=== PATIENT | female | born 1975 ===

== ENCOUNTER 2017-10-29 02:22 | Observation (INO) | payer MEDICAID, OTHER ==
--- NOTE | 2017-10-28 22:05 | HISTORY AND PHYSICAL ---
DATE OF ADMISSION: October 29, 2017 CHIEF COMPLAINT Abnormal Pap. HISTORY OF PRESENT ILLNESS Patient is a 42-year-old 3, para 2 with a history of SHARON 3 on Pap. Recently had returned with LGSIL. She is no longer desiring fertility and is concerned about developing a cervical cancer and she has a history of HPV as well as smoking and has had multiple abnormal Pap smears since 2014. After discussion of risks and alternatives, patient desires to proceed with robotic- assisted hysterectomy, bilateral salpingectomy, diagnostic cystoscopy and possible modified Brasher culdoplasty. PAST MEDICAL HISTORY * Carcinoma in situ of the cervix. * Left bundle branch block. * Anxiety. * OCD. * Hypothyroidism. PAST SURGICAL HISTORY * Two vaginal deliveries. * LEEP of the cervix in 2014. * Gallbladder removal in 2014. ALLERGIES No known drug allergies. CURRENT MEDICATIONS * [place] Thyroid 90 mcg one p.o. q.day. * Lexapro 20 mg. * Mirena. SOCIAL HISTORY She does not drink alcohol. She is an every day smoker. No illicit drug use. 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 FAMILY HISTORY Father with hypertension and throat cancer. Mother with hypertension. REVIEW OF SYSTEMS GENITOURINARY: As per HPI. GENERAL, SKIN, EYES, EARS, NOSE, MOUTH, NECK, RESPIRATORY, CARDIOVASCULAR, GASTROINTESTINAL, MUSCULOSKELETAL, PSYCHIATRIC: All reviewed and noncontributory. PHYSICAL EXAMINATION VITAL SIGNS: BP 118/64, temp 98.8, weight 215, height 69.75 inches with BMI of 39.6. CONSTITUTIONAL: A well-nourished, well-developed female in no distress. SKIN: Without rash or lesions. NECK: Supple without masses. HEART: Regular rate and rhythm. LUNGS: Clear to auscultation bilaterally. ABDOMEN: Soft, nontender, nondistended. Bowel sounds positive. EXTREMITIES: Nontender, no edema. PSYCHIATRIC: Alert and oriented times three. Normal mood and affect. PELVIC: Normal external female genitalia. Well estrogenized vaginal lining. Uterus 6 x 5 cm. No adnexal masses or tenderness. ASSESSMENT Persistently abnormal Pap smears with history of carcinoma in situ. PLAN Plan to perform robotic-assisted hysterectomy with bilateral salpingectomy, diagnostic cystoscopy with possible modified Brasher culdoplasty. [facility], [place]
[~2017-10-29] VITALS: Ht 157.5 cm; Wt 97.5 kg
[2017-10-29] VITALS (8 sets, daily range): BP systolic 123–154; BP diastolic 72–85
[~2017-10-29 02:22] MED LIST: AMOX-559 PO; AZEL205.2 NS; CHOL100059 PO; DOCU100C49 PO; ESCI20TA38 PO; FEXO180T87 PO; FLUT16SP19 NS; L.AC1CAP6 PO; LEVO75TA73 PO; LOR5/325 PO; ONDA4TAB PO; RANI-366 PO
[2017-10-29] MEDS ORDERED: CELECOXIB 200 MG CAP PO ONE (06:30)
[2017-10-29] MEDS ORDERED: PHENAZOPYRIDINE 200 MG TAB PO ONE (06:30)
[2017-10-29] MEDS ORDERED: HYDROmorphone HCL 2 MG TAB PO ONE (06:30)
[2017-10-29] MEDS ORDERED: cefOXitin/DEX(*) 2GM/50ML PREM 50 ML IVPB ONE (06:30)
[2017-10-29 06:36] LABS: PLATELET COUNT, AUTOMATED 166 K/uL (150-450)
[2017-10-29] MEDS ORDERED: ROPIVACAINE 0.2% 20 ML VIAL ONE (07:00)
[2017-10-29] MEDS ORDERED: LIDOCAINE MPF 1% 5 ML VIAL ONE (07:42)
[2017-10-29] MEDS ORDERED: PROPOFOL EMUL(*) 10MG/ML 20 ML 20 ML ONE (07:42)
[2017-10-29] MEDS ORDERED: ONDANSETRON 4 MG/2 ML VIAL ONE (07:42)
[2017-10-29] MEDS ORDERED: DEXAMETHASONE SOD PHOS 10MG/ML ONE (07:42)
[2017-10-29] MEDS ORDERED: fentaNYL CITR 100 MCG/2 ML AMP ONE ×2 (07:42→11:47)
[2017-10-29] MEDS ORDERED: MIDAZOLAM 2 MG/2 ML VIAL ONE (07:43)
[2017-10-29] MEDS ORDERED: ARTIFICIAL TEARS OINT 3.5 GM ONE (07:48)
[2017-10-29] MEDS ORDERED: FAMOTIDINE 20 MG TAB PO ONE (07:50)
[2017-10-29] MEDS ORDERED: NORMOSOL R SOLN(*) 1000 ML BAG 1,000 ML IV PRN (07:50)
[2017-10-29] MEDS ORDERED: MIDAZOLAM 2 MG/2 ML VIAL IVP PRN (07:50)
[2017-10-29] MEDS ORDERED: LIDOCAINE/SOD BICARB 8.4% SYR ID ONE (07:50)
[2017-10-29] MEDS ORDERED: METOPROLOL TART 5 MG/5 ML VIAL ONE (07:56)
[2017-10-29] MEDS ORDERED: ROCURONIUM BROM 10 MG/ML 10 ML ONE (08:00)
[2017-10-29] MEDS ORDERED: PHENYLEPHRINE 10 MG/1 ML VIAL ONE (08:01)
[2017-10-29] MEDS ORDERED: SUGAMMADEX SOD 500 MG/5 ML SDV ONE (10:15)
[2017-10-29] MEDS ORDERED: FAMOTIDINE(*) 20MG/50ML PREMIX 50 ML IVPB PRN (10:33)
[2017-10-29] MEDS ORDERED: DLR(*) 1000 ML BAG 1,000 ML IV PRN (10:33)
--- NOTE | 2017-10-29 10:33 | Post Operative Note ---
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 Operative Day Date: Oct 29, 2017 Time: 10:15 Physicians Surgeon: EDSON Copra Sampler: OSVALDO Anesthesia: SHIELDS Diagnosis Pre-Op Diagnosis: HX OF SHARON 3 Post-Op Diagnosis: SAME ADHESIONS Procedure Findings: UTERUS 7X6 ADHESIONS LEFT TUBE AND PELVIC SIDEWALL ABSENT LEFT OVARY, RIGHT OVARY ADHERED TO POSTERIOR UTERUS NORMAL RIGHT TUBE NORMAL BLADDER, BILATERAL URETERAL JETS AT END OF PROCEDURE [id number] Procedure(s): RAH BISALPINGECTOMY ADHESIOLYSIS DX CYSTO Complications: 0 Fluids Fluids: 1900 CC NR IV Estimated Blood Loss: 30 CC Dictated Date OP Note Dictated: Oct 29, 2017 Time OP Note Dictated: 10:40 Copies to: CAROL SANDHU MD, JOHN MD Oct 29, 2017 10:32
[2017-10-29] MEDS ORDERED: ONDANSETRON 4 MG/2 ML VIAL IV PRN (10:35)
[2017-10-29] MEDS ORDERED: HYDROmorphone HCL 2 MG TAB PO PRN (10:35)
[2017-10-29] MEDS ORDERED: INFLUENZA VIRUS VAC 0.5 ML SYR IM ONE (10:35)
[2017-10-29] MEDS ORDERED: METOCLOPRAMIDE 10 MG/2 ML SDV IV PRN (10:35)
[2017-10-29] MEDS ORDERED: PROMETHAZINE 25 MG/ML 1 ML AMP IVP PRN (10:35)
[2017-10-29] MEDS ORDERED: OXYC-373 PO (10:37)
[2017-10-29] MEDS ORDERED: IBUP800T37 PO (10:37)
--- NOTE | 2017-10-29 10:39 | OB/GYN Discharge Summary ---
Discharge Summary Reason for Hosp/Final Diag: (1) S/P robot-assisted surgical procedure Hospital Course & Plan: ROBOT HYST PERFORMED NO COMPLICATIONS, ON DAY 0 PAIN CONTROLLED TOLERATING DIET AND ACTIVITY, VOIDED PASSED FLATUS, STRONGLY DESIRED DISCHARGE Lates Vital Signs Vital Signs Date Time Temp Pulse Resp B/P (MAP) Pulse Ox O2 Delivery O2 Flow Rate FiO2 10/29/17 06:37 97.8 72 16 140/80 (100) 95 Room Air Weight (Pounds): 215 Result Diagram: 10/29/17 0630 Condition: Improved Discharge: Home, Self Retirement Meds Active Scripts Oxycodone Hcl/Acetaminophen (OXYCODONE-ACETAMINOPHEN 5-325) 1 Each Tablet, 1-2 EACH PO Q4H Y for PAIN, #30 TAB 0 Refills TAKE 1-2 TABLET NEEDED FOR PAIN - NO CLOSER THAN EVERY 4 HOURS. Prov:CAROL RAMIREZ MD 10/29/17 Ibuprofen (IBUPROFEN) 800 Mg Tablet, 1 TAB PO Q8H, #30 TAB 0 Refills Take with food every 8 hours. Prov:CAROL RAMIREZ MD 10/29/17 Reported Medications Fexofenadine Hcl (FEXOFENADINE HCL) 180 Mg Tablet, 180 MG PO QDAY 08/24/16 Levothyroxine Sodium (LEVOTHYROXINE SODIUM) 75 Mcg Tablet, 75 MCG PO QDAY, TAB 08/24/16 Escitalopram Oxalate (LEXAPRO) 20 Mg Tablet, 20 MG PO QDAY, TAB 08/24/16 L.acidoph & Paracasei,B.lactis (Probiotic) 1 Each Capsule, 1 CAP PO DAILY 08/24/16 Ranitidine Hcl (ZANTAC) 150 Mg Tablet, 150 MG PO BID Y for HEARTBURN, TAB 08/24/16 Fluticasone Prop 50 Mcg Ns (FLONASE 50 MCG NS) 16 Gm [place].susp, 2 SPRAYS NS BID , BOT 08/24/16 Cholecalciferol (Vitamin D3) (VITAMIN D3) 1,000 Unit Capsule, 1000 UNIT PO DAILY , CAPSULE 08/24/16 Follow up with: Dr. Ramirez [phone] Follow up in: 6 wks PP or PO, 2 wks PO Discharge Diet: As Tolerates Discharge Activity: Pelvic Rest Copies to: CAROL RAMIREZ MD, JOHN MD Oct 29, 2017 10:39
[2017-10-29] MEDS: ACETAMINOPHEN(*)1000 MG/100 ML 100 ML IVPB SCH ×2 (12:13→17:44)
[2017-10-29] MEDS: SIMETHICONE 80 MG CHEW CHEW SCH ×2 (13:00→17:42)
--- NOTE | 2017-10-29 13:24 | OPERATIVE REPORT 1 ---
EVENT DATE: October 29, 2017 SURGEON: Hans Ramirez MD ANESTHESIOLOGIST: Vimal Kaufman MD ANESTHESIA: manufacturing test engineer: Fabrice Villanueva MD PREOPERATIVE DIAGNOSES 1. History of CIN3. 2. Persistent abnormal Paps. POSTOPERATIVE DIAGNOSES 1. History of CIN3. 2. Persistent abnormal Paps. 3. Adhesions. PROCEDURE PERFORMED Robotic-assisted hysterectomy with bilateral salpingectomy, adhesiolysis and diagnostic cystoscopy. COMPLICATIONS None. FLUIDS 1900 mL of Normosol IV. ESTIMATED BLOOD LOSS 30 mL. INDICATIONS The patient is a 29-year-old multiparous female with history of CIN3 status post LEEP. Followup had persistently abnormal Paps. Patient no longer desired fertility, and desired to proceed with hysterectomy. FINDINGS Uterus 7 x 6 cm. She had adhesions to the left tube and pelvic sidewall, absent left ovary. She had multiple cysts of Morgagni on the left and right tube. She had a right ovary adhered to the posterior uterus. She had a normal right tube, normal bladder. Bilateral ureteral jets were seen at end of the procedure. PROCEDURE After informed consent was obtained, the patient was taken to the operating room with the IV running, placed in a supine position, where general anesthesia was obtained without difficulty. She was then placed in [facility], examined under anesthesia with the above findings. She was then prepped and draped in the usual fashion. A Umana catheter was placed. Weighed speculum was placed into the vagina. Cervix was sounded to 9 cm. The V-Care was then advanced into the uterine cavity and sewn to the cervix with #0-Vicryl to secure it. Legs were then lowered. Attention was then turned to the abdomen. 0.2 Naropin was infiltrated into the umbilicus, skin incision made with a scalpel. Veress needle advanced into the umbilicus, and normal CO2 filling pressures were noted. After adequate insufflation, an 8 mm bladeless trocar was then advanced into the abdominal cavity. No injuries were noted at time of entry. The remaining ports were then placed in a horizontal plane with one of two ports placed in the left side of the abdomen, and then the #4 being placed on the right side, and the cyst port in the far right lateral positioning. They were all placed in a similar fashion with 0.2 Naropin, skin incision with a scalpel, and advancing the 8 mm bladeless trocar under direct visualization. Once all the trocars were placed, the robot was then docked. Targeting was successful. The remaining arms were all docked and the instruments advanced into the abdominal cavity under direct visualization. Dr. Ramirez attended the console, and inspection of the left pelvic side wall revealed adhesions of the bowel to the left pelvic sidewall, which is also to the left tube and posterior cul-de-sac. The scissors were used then to transect the adhesions away from the left pelvic sidewall. There was cyst of Morgagni on the patient's left tube. However, after careful inspection, a right ovary could not be visualized , did not pick up man in history where she had surgically removed. The left tube did appear shortened. The only other abnormalities were the cyst of Morgagni on the left tube. Once all the adhesions were removed from the tube and bowel on the pelvic sidewall, and normal anatomy was restored, the Endoshears were used to transect the mesosalpinx towards the cornual region of the uterus. The vessel sealer was then used to coapt and transect the mesosalpinx towards the round ligament. Round ligament was transected with a vessel sealer, and then the remainder of the broad ligament was then transected parallel to the uterus down to the lower uterine segment with a vessel sealer. The bladder flap was then created. The ProGrasp was used to tent the peritoneum above the V-Care cup , and the scissors were used to transect the peritoneum over the V-Care up, create a bladder flap anteriorly. The posterior leaf of the broad ligament was then transected down towards the right uterosacral ligament. The uterine arteries were then identified, and in a perpendicular angle in the lower uterine segment, the vessel sealer was used to coapt the uterine arteries, and then were transected. Then with the assist of the vessel sealer and the scissors, the remaining pedicle was developed by placing the vessel sealer parallel to the cervix and grasping the uterine arteries, coapting, and then using the scissors to transect the uterine arteries. Once the pedicle had been developed, attention was then turned back to the patient's right side. The right ovary adhesion was removed from the posterior wall of the uterus with the Endo Herb, and then the tube was from the right ovary with the vessel sealer down to the cornual region of the uterus. Uterine ovarian ligament was identified on the patient's right and coapted with the vessel sealer, and then transected down towards the round ligament. The round ligament was transected with the vessel sealer, and the broad ligament was serially clamped with the vessel sealer, coapted and transected down to the lower uterine segment. The bladder flap was then completed anteriorly with Endo Herb, transecting the peritoneum anteriorly. The posterior leaf of the broad ligament was then transected down towards the right uterosacral ligament. Uterine arteries were identified, and they purchased in the lower uterine segment at a perpendicular angle with a vessel sealer in two locations and then transected. The vessel sealer and the scissors were then used to develop the pedicle further by grasping the uterine artery pedicle parallel to the cervix, and then transecting the pedicle with the scissors. Once the pedicle had been developed, the colpotomy was performed over the V cup, and at the 12 o'clock position, transecting down towards the three o'clock down to the six o'clock. Attention was then turned to the patient's left, where in a counterclockwise manner, the completion of the colpotomy was performed from the 12 to nine and six o'clock position. Once this was fully transected, the uterus was removed from the vagina. Inspection of the vaginal cuff revealed minor oozing on the patient's right, which was made hemostatic with the bipolar fenestrated grasper. The needle bulk delivery driver was then advanced with a long forceps and #0-Vicryl was advanced into the abdomen, and the apices on the right then the left were secured with a [id number] suture, plicating the uterosacral ligament to the vaginal cuff on the right then the left. Then, the needle was then removed , and the V-Loc was advanced into the abdomen, and then the V-Loc was then used to close the vaginal cuff in a running fashion. Irrigation was performed. No bleeding was noted from the cuff or any of the pedicles. The instruments were removed from the abdomen. The robot was undocked. The NathanTexxiBecca was used to close the 10-11 port on the patient's right side with #0-Vicryl, and the skin closed with preet. The gas was allowed to escape prior to removal of all the trocars. Cystoscopy was performed, and bilateral ureteral jets could be visualized, the right and the left ureteric orifices. No injuries were noted within the bladder. Umana catheter was then replaced. Vagina was inspected, noted to be hemostatic and good vaginal closure. Patient was taken out of the [facility], awakened from anesthesia and taken to the recovery room in stable condition. DUTCH
--- NOTE | 2017-10-29 15:43 | OB/GYN Progress Note ---
OB Subjective Progress Notes Subjective ambulating, tolerating pain, no nausea or vomiting GI: NEG Nausea, NEG Vomiting, NEG Flatus : Voiding Well Pain: Mild OB Objective Physical Exam Vital Signs Date Time Temp Pulse Resp B/P (MAP) Pulse Ox O2 Delivery O2 Flow Rate FiO2 10/29/17 12:35 63 12 96 10/29/17 06:37 97.8 140/80 (100) Room Air Intake and Output 10/30/17 06:59 Intake Total 2500 ml Output Total 350 ml Balance 2150 ml Intake Oral 100 ml IV Total 2400 ml Output Urine Total 350 ml Cardiovascular: Regular Rate and Rhythm Respiratory: Clear to Auscultation Abdomen: Soft, Non-Tender, Non-Distended, Bowel Sounds Present Extremities: No Edema Result Diagram: 10/29/17 0630 Assessment and Plan Problems: (1) S/P robot-assisted surgical procedure Assessment & Plan: pain controlled, tolerating diet and exercise, strongly desires to go home, will encourage to continue observation CAROL SANDHU MD Oct 29, 2017 15:43
[2017-10-29] MEDS: METOCLOPRAMIDE 10 MG/2 ML SDV IVP SCH ×2 (15:57→17:00)
[2017-10-29] MEDS ORDERED: CELECOXIB 200 MG CAP PO SCH (20:00)
[2017-10-29] MEDS ORDERED: FAMOTIDINE 20 MG TAB PO SCH (21:00)
[2017-10-29] MEDS ORDERED: DOCUSATE CALCIUM 240 MG CAP PO SCH (21:00)
== END 2017-10-29 19:26 | disposition home or self-care (01) ==
LOC: OR 02:22 → INTOOBSV 12:35 → PED 12:35 → UNDOADMIN 13:13 → PED 13:13
PROVIDERS: ADMIT Obstetrics & Gynecology; ATTEND Obstetrics & Gynecology
DX: N73.6 Female pelvic peritoneal adhesions (postinfective) (principal)
CPT/HCPCS: 36415; 58571; 84703; 85025; 88307; G0378; J0131; J0694; J1100; J2001; J2250; J2370; J2405; J2704; J2765; J2795; J3010; J3490; S2900

== ENCOUNTER → 2018-02-25 | Outpatient (CLI) | payer MEDICAID ==
[~2018-02-25] MED LIST changes: +AZEL137S NS; +IBUP800T37 PO; +OXYC-373 PO
== END ==
LOC: LAB 14:59
PROVIDERS: ATTEND Otolaryngology
DX: J30.9 Allergic rhinitis, unspecified (principal)
CPT/HCPCS: 36415; 86003

== ENCOUNTER 2018-03-21 00:22 | Day surgery (SDC) | payer MEDICAID ==
[~2018-03-21] VITALS: Ht 157.5 cm; Wt 95.7 kg
[2018-03-21] MEDS ORDERED: ONDANSETRON 4 MG/2 ML VIAL ONE (06:57)
[2018-03-21] MEDS ORDERED: DEXAMETHASONE SOD 4 MG/ML VIAL ONE (06:57)
[2018-03-21] MEDS ORDERED: PROPOFOL EMUL(*) 10MG/ML 20 ML 20 ML ONE (06:57)
[2018-03-21] MEDS ORDERED: LIDOCAINE MPF 1% 5 ML VIAL ONE (06:57)
[2018-03-21] MEDS ORDERED: METOCLOPRAMIDE 10 MG/2 ML SDV ONE (06:57)
[2018-03-21] MEDS ORDERED: MIDAZOLAM 2 MG/2 ML VIAL IVP PRN (08:25)
[2018-03-21] MEDS ORDERED: NORMOSOL R SOLN(*) 1000 ML BAG 1,000 ML IV PRN (08:25)
[2018-03-21] MEDS ORDERED: LIDOCAINE/SOD BICARB 8.4% SYR ID ONE (08:25)
[2018-03-21] MEDS ORDERED: fentaNYL CITR 100 MCG/2 ML AMP ONE (08:39)
[2018-03-21 08:51] LABS: PLATELET COUNT, AUTOMATED 173 K/uL (150-450)
[2018-03-21] MEDS ORDERED: FAMOTIDINE 20 MG/50 ML PREMIX IVPB ONE (09:15)
[2018-03-21] MEDS ORDERED: ceFAZolin(*) 2GM/D5W 50ML 50 ML IVPB ONE (09:15)
[2018-03-21 09:23] VITALS: BP 147/87
[2018-03-21] MEDS ORDERED: OXYMETAZOLINE SPRAY 15 ML BTL ONE ×3 (09:42→10:53)
[2018-03-21] MEDS ORDERED: NS(*) 0.9% 250 ML BAG 250 ML ONE (09:42)
[2018-03-21] MEDS ORDERED: LIDO/EPI 1% MDV 1:100,000 20ML INFIL ONE (09:42)
[2018-03-21] MEDS ORDERED: BACITRACIN OINT 15 GM TUBE TP ONE (09:42)
--- NOTE | 2018-03-21 11:39 | OPERATIVE REPORT 1 ---
EVENT DATE: March 21, 2018 SURGEON: Delfin Hopson Jr., MD ANESTHESIOLOGIST: Mark Cruz MD ANESTHESIA: LMA. PROCEDURE PERFORMED 1. Adenoidectomy. 2. Bilateral inferior turbinectomies. PREOPERATIVE DIAGNOSES 1. Adenoid hypertrophy. 2. Bilateral inferior turbinate hypertrophy. POSTOPERATIVE DIAGNOSES 1. Adenoid hypertrophy. 2. Bilateral inferior turbinate hypertrophy. INDICATIONS Please refer to the preoperative note. DESCRIPTION OF PROCEDURE The patient was positively identified in the preoperative area. SHE was accompanied there by her mother. Risks and benefits were explained including, but not limited to, bleeding, infection and those associated with anesthesia. She acknowledged understanding of those risks. She was then brought back to the operating suite, laid supine on the operating table and anesthesia was administered. Once asleep, the patient was positioned, prepped and draped in the usual sterile fashion. I initially decongested the nose by placing cottonoids containing Afrin solution. These were subsequently removed. Bilateral inferior turbinectomies were then performed with a microdebrider blade. Hemostasis was obtained with suction Bovie electrocautery. The patient was then repositioned for the adenoidectomy. A McIvor mouth gag was placed in the patient's oral cavity. Red rubber catheter was placed through the right nostril and utilized to suspend the soft palate. The patient was noted to have severe adenoid hypertrophy and adenoidectomy was then performed with an adenoid curette. This was sent for permanent pathology. Tonsil packs were placed in the nasopharynx for hemostasis. These were subsequently removed. Hemostasis was further obtained with suction Bovie electrocautery. The patient was then returned to Anesthesia for emergence. ESTIMATED BLOOD LOSS 25 cc. COMPLICATIONS No complications. MTDD
[2018-03-21] MEDS ORDERED: CEFU500T10 PO (11:53)
[2018-03-21] MEDS ORDERED: HYDR-653 PO (11:54)
[2018-03-21 12:05] VITALS: BP 146/83
[2018-03-21 12:14] VITALS: BP 154/94
[2018-03-21 12:18] VITALS: BP 143/84
== END 2018-03-21 12:05 | disposition home or self-care (01) ==
LOC: OR 00:22
PROVIDERS: ATTEND Otolaryngology
DX: J35.2 Hypertrophy of adenoids (principal); J34.3 Hypertrophy of nasal turbinates
CPT/HCPCS: 30140; 36415; 42831; 85025; 88304; J1100; J2001; J2250; J2405; J2704; J2765; J3010; J3490; J7050; J0690